=== PATIENT | female | born 1970 | race Caucasian/White ===

== ENCOUNTER 2017-08-19 02:37 | Emergency (ER) | payer OTHER ==
[~2017-08-19] VITALS: Ht 167.6 cm; Wt 90.7 kg
--- OUTSIDE RECORDS SUMMARY | 2017-08-19 02:47 | XMS REPORT ---
Author Author LEIGH SPEAR [facility] Address [address] [place] [address] Care Team Providers Care Glass Setter Name Role Phone LEIGH SPEAR Unavailable PROBLEMS Type Condition ICD9-CM Code KKB14-CH Code Onset Dates Condition Status SNOMED Code Problem Gastroesophageal reflux disease without esophagitis K21.9 Active 386338952 Problem Elbow pain, right M25.521 Active 55345695 Problem Overactive bladder N32.81 Active 792630703 Problem Depression with anxiety F41.8 Active 081180571 ALLERGIES No Known Allergies SOCIAL HISTORY No smoking Hx information available PLAN OF CARE VITAL SIGNS MEDICATIONS Medication Instructions Dosage Frequency Start Date End Date Duration Status Oxybutynin Chloride 5 mg Orally Twice a day 1 tablet 12h 17 Apr, 2016 16 May, 2016 30 day(s) Active RESULTS No Results PROCEDURES No Known procedures IMMUNIZATIONS No Known Immunizations
--- OUTSIDE RECORDS SUMMARY | 2017-08-19 02:47 | XMS REPORT ---
Author LEIGH Luna Organization [employer] Address Unknown Phone Unavailable Care Team Providers Care Land Leases And Rentals Manager Name Role Phone LEIGH SPEAR CP Unavailable Allergies No Known Allergies Problems Problem Type Condition Code Onset Dates Condition Status Problem Depression with anxiety F41.8 Active Medications No Known Medications Results No Known Results Summary Purpose [employer] Submission
--- OUTSIDE RECORDS SUMMARY | 2017-08-19 02:47 | XMS REPORT ---
Author Author LEIGH SPEAR [facility] [employer] Address Unknown Phone Unavailable Care Team Providers Care Junior Network Administrator Name Role Phone LEIGH SPEAR CP Unavailable Allergies, Adverse Reactions, Alerts Substance Reaction Event Type N.K.D.A. Info Not Available Non Drug Allergy Problems Problem Type Condition Code Onset Dates Condition Status Assessment Depression with anxiety F41.8 Active Problem Depression with anxiety F41.8 Active Medications Medication Code System Code Instructions Start Date End Date Status Dosage Escitalopram Oxalate [facility] [address]-74 5 mg Orally Once a day November 04, 2015 2 tablets Procedures Procedure Coding System Code Date Office Visit, Est Pt., Level 3 CPT-4 81851 November 04, 2015 Vital Signs Date/Time: November 04, 2015 Cardiac Monitoring Heart Rate 88 bpm Weight 198.8 lbs Height 63 in Blood Pressure Diastolic 85 mmHg Blood Pressure Systolic 147 mmHg Results No Known Results Summary Purpose [employer] Submission
--- OUTSIDE RECORDS SUMMARY | 2017-08-19 02:47 | XMS REPORT ---
Author Author LEIGH SPEAR [facility] Address [address] [place] [address] Care Team Providers Care Laborer Prestressed Concrete Name Role Phone LEIGH SPEAR Unavailable PROBLEMS Type Condition ICD9-CM Code BIT87-DL Code Onset Dates Condition Status SNOMED Code Problem Elbow pain, right M25.521 Active 78696560 Problem Overactive bladder N32.81 Active 259220713 Problem Depression with anxiety F41.8 Active 399922887 ALLERGIES Unknown Allergies SOCIAL HISTORY No smoking Hx information available PLAN OF CARE VITAL SIGNS MEDICATIONS Medication Instructions Dosage Frequency Start Date End Date Duration Status Diclofenac Sodium 75 MG Orally Twice a day 1 tablet with food or milk 12h 30 Feb, 2016 30 day(s) Active RESULTS No Results PROCEDURES No Known procedures IMMUNIZATIONS No Known Immunizations
--- OUTSIDE RECORDS SUMMARY | 2017-08-19 02:47 | XMS REPORT ---
Author Author DONNELL WEST Organization [facility] Address [address] [place] [address] Care Team Providers Care Prospect Manager Name Role Phone DONNELL WEST Unavailable PROBLEMS Type Condition ICD9-CM Code RKN30-KB Code Onset Dates Condition Status SNOMED Code Problem Infection of nose J34.89 Active Problem Gastroesophageal reflux disease without esophagitis K21.9 Active 200679359 Problem Overactive bladder N32.81 Active 277314312 Problem Depression with anxiety F41.8 Active 576627987 ALLERGIES No Known Allergies ENCOUNTERS Encounter Location Date Diagnosis [place] [id number] [place] [address] May, Overactive bladder N32.81 ; Pain in joint of right shoulder M25.511 ; Infection of nose J34.89 and Skin lesion of face L98.9 [place] [address] [id number] [place] [address]702 Mar, Depression with anxiety F41.8 ; Overactive bladder N32.81 ; Long-term use of high-risk medication Z79.899 and Pain in joint of right shoulder M25.511 [place] [id number] [place] [address] 72551- 00[address] Feb, Depression with anxiety F41.8 [place] [id number] [place] [address] 24660- 6668 Feb, Allergic contact dermatitis due to plants, except food L23.7 [place] [id number] [place] [address] 47681- 6809 Feb, [place] [id number] [place] [address] 59199- 5721 Oct, Gastroesophageal reflux disease without esophagitis K21.9 [place] [address] [address] Jul, Acute nasopharyngitis J00 [facility] [id number] [place] [address] 83208- 0165 Apr, [facility] [id number] [place] [address] 11551- 6033 Feb, [facility] [id number] [place] [address]12- 1719 Feb, [facility] [id number] [place] [address]01- 0230 Feb, Depression with anxiety F41.8 ; Elbow pain, right M25.521 and Overactive bladder N32.81 [facility] [id number] [place] [address] 03921- 3659 Jan, [facility] [id number] [place] [address] 92319- 7771 Oct, Depression with anxiety F41.8 [facility] [id number] [place] [address] 38583- 0301 Jan, Left knee pain M25.562 [facility] [id number] [place] [address] 66477- 7400 Jan, Left knee pain M25.562 [facility] [id number] [place] [address] 44066- 6385 17 Oct, 2014 [facility] [id number] [place] [address] 15808- 9962 14 Oct, 2014 Poison kraig dermatitis 692.6 [facility] [id number] [place] [address] 94798- 0379 14 Jul, 2014 [facility] [address] [address] 13 Jul, 2014 [facility] [id number] [place] [address] 90951- 8532 Jan, [facility] [place] [facility] [address] [id number] [place] [address] Nov, [facility] [place] [facility] [address] [id number] [place] [address] Nov, [facility] [place] [facility] [address] [id number] [place] [address] Nov, [facility] [place] [facility] [address] [id number] [place] [address] Nov, [facility] [place] [facility] [address] [id number] [place] [address] Oct, [facility] [place] [facility] [address] [id number] [place] [address] 46[address] Oct, [facility] [place] [facility] [address] [id number] [place] [address] 6[address] Oct, [facility] [place] [facility] [address] [id number] [place] [address] 1857 Oct, [facility] [place] [facility] [address] [id number] [place] [address] 9519 Oct, [facility] [place] [facility] [address] [id number] [place] [address]32 Oct, [facility] [place] [facility] [address] [id number] [place] [address] 2686 Oct, [facility] [place] [facility] [address] [id number] [place] [address] 9226 Oct, [facility] [place] [facility] [address] [id number] [place] [address] August, [facility] [place] [facility] [address] [id number] [place] [address] 2483 August, [facility] [place] [facility] [address] [id number] [place] [address] 48[address] Jul, [facility] [place] [facility] [address] [id number] [place] [address] Jul, IMMUNIZATIONS No Known Immunizations SOCIAL HISTORY Never Assessed REASON FOR VISIT cough, pt. states is having continuous cough that is causing her to throw up and making chest very sore---[place],[facility] PLAN OF CARE Activity Details Follow Up 4 Weeks Reason:f/u Pcp VITAL SIGNS Height 63 in 2016-10-21 Weight 216.7 lbs 2016-10-21 Temperature 98.4 degrees Fahrenheit 2016-10-21 Heart Rate 74 bpm 2016-10-21 Respiratory Rate 18 2016-10-21 BMI 38.38 kg/m2 2016-10-21 Blood pressure systolic 119 mmHg 2016-10-21 Blood pressure diastolic 95 mmHg 2016-10-21 MEDICATIONS Medication Instructions Dosage Frequency Start Date End Date Duration Status Escitalopram Oxalate 20mg Orally Once a day 1 tablet 24h Oct, 30 Active Omeprazole 20 mg Orally Once a day 1 capsule 24h Oct, 30 day(s ) Active Oxybutynin Chloride 5 mg Orally Twice a day 1 tablet 12h 30 Active RESULTS No Results PROCEDURES No Known procedures INSTRUCTIONS MEDICATIONS ADMINISTERED No Known Medications MEDICAL (GENERAL) HISTORY Type Description Date Medical History Depression Surgical History hysterectomy 1994 Surgical History breast reduction 1999
--- OUTSIDE RECORDS SUMMARY | 2017-08-19 02:47 | XMS REPORT ---
Author Author LEIGH SPEAR Organization [employer] Address Unknown Phone Unavailable Care Team Providers Care Time Clerk Name Role Phone LEIGH SPEAR CP Unavailable Allergies, Adverse Reactions, Alerts Substance Reaction Event Type N.K.D.A. Info Not Available Non Drug Allergy Problems Problem Type Condition Code Onset Dates Condition Status Problem Unspecified disorder of skin and subcutaneous tissue 709.9 Active Assessment Left knee pain M25.562 Active Problem Lumbago 724.2 Active Problem Unspecified breast screening V76.10 Active Problem Pain in joint, lower leg 719.46 Active Problem Cough 786.2 Active Problem Unspecified pruritic disorder 698.9 Active Problem Hormone replacement therapy (postmenopausal) V07.4 Active Problem Routine gynecological examination V72.31 Active Medications Medication Code System Code Instructions Start Date End Date Status Dosage Acetaminophen-Codeine [facility] [address]-98 300-30 MG Orally every 6 hrs prn Jan 27, 2015 1 tablet as needed Procedures Procedure Coding System Code Date Office Visit, Est Pt., Level 3 CPT-4 40796 Jan 27, 2015 Vital Signs Date/Time: Jan 27, 2015 Temperature 99.5 F Weight 213.6 lbs Height 63 in BMI 37.83 Index Blood Pressure Diastolic 82 mmHg Blood Pressure Systolic 140 mmHg Cardiac Monitoring Heart Rate 88 bpm Results No Known Results Summary Purpose [employer]Works Submission
--- OUTSIDE RECORDS SUMMARY | 2017-08-19 02:47 | XMS REPORT ---
Author LEIGH Luna Organization [employer] Address Unknown Phone Unavailable Care Team Providers Care Part Time Receptionist Name Role Phone LEIGH SPEAR CP Unavailable Allergies No Known Allergies Problems Problem Type Condition Code Onset Dates Condition Status Problem Overactive bladder N32.81 Active Problem Depression with anxiety F41.8 Active Problem Elbow pain, right M25.521 Active Medications No Known Medications Results No Known Results Summary Purpose [employer] Submission
--- OUTSIDE RECORDS SUMMARY | 2017-08-19 02:47 | XMS REPORT ---
Author Author LEIGH SPEAR [facility] [employer] Address Unknown Phone Unavailable Care Team Providers Care Body And Fender Mechanic Apprentice Name Role Phone LEIGH SPEAR CP Unavailable Allergies, Adverse Reactions, Alerts Substance Reaction Event Type N.K.D.A. Info Not Available Non Drug Allergy Problems Problem Type Condition Code Onset Dates Condition Status Problem Overactive bladder N32.81 Active Problem Depression with anxiety F41.8 Active Problem Elbow pain, right M25.521 Active Assessment Overactive bladder N32.81 Active Assessment Depression with anxiety F41.8 Active Assessment Elbow pain, right M25.521 Active Medications Medication Code System Code Instructions Start Date End Date Status Dosage Escitalopram Oxalate [facility]NOTE 2] [address]-60 20mg Orally Once a day November 04, 2015 1 tablet VESIcare [facility]NOTE 2] [address]-22 10 MG Orally Once a day Mar 02, 2016 Apr 01, 2016 1 tablet Procedures Procedure Coding System Code Date Office Visit, Est Pt., Level 4 CPT-4 68221 Mar 02, 2016 X-RAY EXAM OF ELBOW CPT-4 11496 Mar 02, 2016 Vital Signs Date/Time: Mar 02, 2016 Cardiac Monitoring Heart Rate 76 bpm Weight 203.4 lbs Height 63 in BMI 36.03 Index Blood Pressure Diastolic 78 mmHg Blood Pressure Systolic 120 mmHg Results Name Result Date Reference Range Unit Abnormality Flag Xray : Elbow, Right 2 views (IN HOUSE) Summary Purpose [employer]Works Submission
--- OUTSIDE RECORDS SUMMARY | 2017-08-19 02:47 | XMS REPORT ---
Author Author LEIGH SPEAR Organization [employer] Address Unknown Phone Unavailable Care Team Providers Care Dynamic Balancer Set Up Worker Name Role Phone LEIGH SPEAR CP Unavailable [...] Problem Routine gynecological examination V72.31 Active Medications No Known Medications Procedures Procedure Coding System Code Date X-RAY EXAM OF KNEE, 3 CPT-4 19571 Jan 28, 2015 Results No Known Results Summary Purpose [employer]Works Submission
--- OUTSIDE RECORDS SUMMARY | 2017-08-19 02:48 | XMS REPORT | Continuity of Care Document ---
Author Author [facility] Address Unknown Phone Unavailable Allergies There is no data. Medications There is no data. Problems Date Dx Coded Attending Type Code Diagnosis Diagnosed By 07/30/2013 YONY KENT APRN R 698.9 UNSPECIFIED PRURITIC DISORDER 07/30/2013 YONY KENT APRN R 709.9 UNSPECIFIED DISORDER OF SKIN AND SUBCUTANEOUS TISSUE 07/30/2013 JENNIFER DE LEON APRN A 698.9 UNSPECIFIED PRURITIC DISORDER 07/30/2013 JENNIFER DE LEON APRN A 709.9 UNSPECIFIED DISORDER OF SKIN AND SUBCUTANEOUS TISSUE 07/30/2013 GIDEON SPEAR APRNA L 698.9 UNSPECIFIED PRURITIC DISORDER 07/30/2013 BUSTER SPEAR APRNWNYA L 709.9 UNSPECIFIED DISORDER OF SKIN AND SUBCUTANEOUS TISSUE 07/30/2013 BUSTER SPEAR APRNWNYA L 698.9 UNSPECIFIED PRURITIC DISORDER 07/30/2013 BUSTER SPEAR APRNWNYA L 709.9 UNSPECIFIED DISORDER OF SKIN AND SUBCUTANEOUS TISSUE 08/21/2013 JENNIFER DE LEON APRN A V07.4 HORMONE REPLACEMENT THERAPY (POSTMENOPAUSAL) 08/21/2013 JENNIFER DE LEON APRN A V72.31 DIRECTOR ADVANCED EXAM, ROUTINE 08/21/2013 NICOLASA DE LEON APRNIDI A V72.62 LAB SCREENING- GENERAL PHYSICAL 08/21/2013 JENNIFER DE LEON APRN A V76.10 BREAST CANCER SCREENING 08/21/2013 LEIGH SPEAR APRN L V07.4 HORMONE REPLACEMENT THERAPY (POSTMENOPAUSAL) 08/21/2013 PABLITO SPEAR APRNNYA L V72.31 DIRECTOR ADVANCED EXAM, ROUTINE 08/21/2013 GIDEON SPEAR APRNA L V72.62 LAB SCREENING- GENERAL PHYSICAL 08/21/2013 GIDEON SPEAR APRNA L V76.10 BREAST CANCER SCREENING 08/21/2013 GIDEON SPEAR APRNCristobal Tesfaye V07.4 HORMONE REPLACEMENT THERAPY (POSTMENOPAUSAL) 08/21/2013 GIDEON SPEAR APRNA L V72.31 DIRECTOR ADVANCED EXAM, ROUTINE 08/21/2013 GIDEON SPEAR APRNA L V72.62 LAB SCREENING- GENERAL PHYSICAL 08/21/2013 GIDEON SPEAR APRNrCistobal Tesfaye V76.10 BREAST CANCER SCREENING 10/28/2013 PABLITO SPEAR APRNNYA L 786.2 COUGH 10/28/2013 GIDEON SPEAR APRNA L 786.2 COUGH 11/18/2013 GIDEON SPEAR APRNA L 719.46 PAIN IN JOINT INVOLVING LOWER LEG 11/18/2013 PABLITO SPEAR APRNNYA L 724.2 LUMBAGO Procedures Code [place] [address] MAMMOGRAM, SCREENING 08/23/2013 11262 XRAY CHEST 2 VIEW 10/28/2013 57657 XRAY LUMBAR SPINE 2 OR 3 VIEWS 11/18/2013 93903 XRAY KNEE RIGHT 1 OR 2 VIEWS 11/18/2013 Results There is no data. Encounters ACCT No. Visit Date/Time Discharge Status Pt. Type Provider Facility Loc./Unit Complaint [id number] 11/18/2013 10:00:00 11/18/2013 23:59:59 CLS Outpatient RAINER URBINAValery LEIGH L [id number] 10/28/2013 09:51:00 10/28/2013 23:59:59 CLS Outpatient RAINER URBINAValery LEIGH L [id number] 08/21/2013 10:29:00 08/21/2013 23:59:59 CLS Outpatient JENNIFER DE LEON APRN [id number] 07/30/2013 09:18:00 07/30/2013 23:59:59 CLS Outpatient YONY KENT APRN [id number] 05/30/2017 14:00:00 05/30/2017 23:59:59 CLS Outpatient LEIGH SPEAR APRN [facility] [place]
[2017-08-19] MEDS ORDERED: OXYB5TAB9 (02:55)
--- NOTE | 2017-08-19 03:51 | ED Upper Extremity ---
General Chief Complaint: Upper Extremity Stated Complaint: RT SHOULDER PAIN Nursing Triage Note: 1 week hx of right upper extremity hurting and affecting sleep. Pain across shoulder to posterior neck. Pt unable to go into work at midnight Nursing Sepsis Screen: No Definite Risk Source: patient Exam Limitations: no limitations History of Present Illness Date Seen by Provider: August 19, 2017 Time Seen by Provider: 02:54 Initial Comments C/O RIGHT SHOULDER PAIN SINCE Monday08/14/17 NO KNOWN INJURY OR UNUSUAL ACTIVITY PT WORKS AT [employer] IN [employer]. PAIN IS ONLY WITH MOVEMENTS, BUT STATES SHE HASN'T BEEN SLEEPING WELL BECAUSE OF PAIN, SO SHE DID NOT GO TO WORK TONIGHT PAIN RADIATES TO RIGHT LATERAL NECK AND DOWN TO UPPER ASPECT OF ARM NO PARESTHESIAS OR MOTOR DEFICITS NO PRIOR PROBLEMS WITH THIS SHOULDER HAS NOT SOUGHT CARE UNTIL TODAY TOOK 1 TYLENOL AT 1600 PCP: ANDREA Allergies and Home Medications Allergies Coded Allergies: No Known Drug Allergies (Unverified , 08/19/17) Home Medications Methylprednisolone 4 Mg Tab.ds.pk, 4 MG PO UD Prescribed by: THOMAS SWANSON on 08/19/17 3443 Patient Home Medication List Home Medication List Reviewed: Yes Constitutional: no symptoms reported Respiratory: no symptoms reported Cardiovascular: no symptoms reported Genitourinary: no symptoms reported Control/STD Prophylaxis: Other (HYST) Musculoskeletal: see HPI Skin: no symptoms reported Psychiatric/Neurological: No Symptoms Reported Past Lyvarjm-Gwcfhq-Rgxusz Hx Patient Social History Alcohol Use: Denies Use Recreational Drug Use: No Smoking Status: Never a Smoker 2nd Hand Smoke Exposure: No Recent Foreign Travel: No Contact w/Someone Who Travel: No Recent Infectious Disease Expo: No Recent Hopitalizations: No Seasonal Allergies Seasonal Allergies: No Past Medical History Surgeries: Yes (BREAST REDUCTION) Breast, Hysterectomy, Tubal Ligation Respiratory: No Cardiac: No Neurological: No : No HOMEMAKER COMPANION History: Hysterectomy Genitourinary: No Gastrointestinal: No Musculoskeletal: No Endocrine: No HEENT: No Cancer: No Psychosocial: No Integumentary: No Blood Disorders: No Physical Exam Vital Signs Vital Signs - First Documented 08/19/17 02:45 Temp 97.2 Pulse 60 Resp 16 B/P (MAP) 121/93 (102) Pulse Ox 98 O2 Delivery Room Air Capillary Refill : Less Than 3 Seconds General Appearance: WD/WN, no apparent distress, obese, other (TEXTING/PLAYING ON PHONE AND TALKING ON PHONE THROUGHOUT ER STAY) Neck: non-tender, full range of motion, supple, normal inspection Cardiovascular: normal peripheral pulses, regular rate, rhythm, no edema, no JVD, no murmur Respiratory: chest non-tender, normal breath sounds, no respiratory distress, no accessory muscle use Back: normal inspection, no CVA tenderness, no vertebral tenderness Shoulder: limited ROM (LIMITED ROM DUE TO PAIN, CREPITANCE/CLICKING ON EXTERNAL ROTATION OF SHOULDER. NO TENDERNESS TO [place], BUT HAS PAIN WITH ANY MOVEMENT ON SHOULDER IN ANY DIRECTION. DISTAL MOTOR/SENSORY/VASCULAR INTACT) Elbow/Forearm: normal inspection Wrist: Yes normal inspection Hand: normal inspection Neurologic/Tendon: normal sensation, normal motor functions, normal tendon functions Neurologic/Psychiatric: licensed mental health counselor II-XII nml as tested, no motor/sensory deficits, alert, normal mood/affect, oriented x 3 Skin: normal color, warm/dry; No rash Procedures/Interventions Splinting and Joint Reduction : Arm Sling: [place] Progress/Results/Core Measures Results/Orders My Orders Orders - THOMAS SWANSON DO Shoulder, Right, 3 Views (08/19/17 02:54) Shoulder Immoblizer (08/19/17 03:53) Rx-Naproxen (Rx-Naprosyn) (08/19/17 03:53) Vital Signs/I&O 08/19/17 08/19/17 02:45 04:08 Temp 97.2 97.2 Pulse 60 60 Resp 16 16 B/P (MAP) 121/93 (102) 121/93 (102) Pulse Ox 98 98 O2 Delivery Room Air Blood Pressure Mean: 102 Diagnostic Imaging Comments XRAYS RIGHT SHOULDER--NO ACUTE PROCESS, PENDING RADIOLOGIST REVIEW Reviewed: Reviewed by Me Departure Impression Primary Impression: Right shoulder pain Disposition: 01 HOME, SELF-CARE Condition: Stable Departure-Patient Inst. Referrals: [facility] (PCP[facility]Family) Primary Care Physician Patient Instructions: How to Use a Shoulder Sling, Shoulder Pain (DC) Add. Discharge Instructions: WEAR SLING AT ALL TIMES ALTERNATE ICE AND HEAT TO AREA AT 20 MINUTE INTERVALS FOLLOW UP WITH [facility] IN 2-3 DAYS FOR FURTHER CARE All discharge instructions reviewed with patient and/or family. Voiced understanding. Scripts Methylprednisolone (Medrol) 4 Mg Tab.ds.pk 4 MG PO UD, #1 PKG Prov: THOMAS SWANSON DO 08/19/17 THOMAS SWANSON DO August 19, 2017 03:50
[2017-08-19] MEDS ORDERED: RX-NAPROXEN (NAPROSYN) 250 MG TAB PPK#4 PO STA (03:53)
[2017-08-19] MEDS ORDERED: METH4TAB PO (03:57)
[2017-08-19 04:08] VITALS: BP 121/93
--- NOTE | 2017-08-19 06:45 | Diagnostic Imaging Report ---
INDICATION: Right shoulder pain. COMPARISON: None available. TECHNIQUE: 3 views of right shoulder were obtained. FINDINGS: No acute fracture or traumatic malalignment. Subacromial space is maintained. No abnormal soft tissue mineralizations. No displaced right upper rib fractures. IMPRESSION: No acute osseous abnormality. Dictated by: Dictated on workstation # [id number]
== END 2017-08-19 04:08 | disposition home or self-care (01) ==
LOC: EDUNIT# 02:37 → ER 02:43
DX: M25.511 Pain in right shoulder (principal); Z90.710 Acquired absence of both cervix and uterus; Z98.51 Tubal ligation status
CPT/HCPCS: 73030